=== PATIENT | female | born 1950 | race Caucasian/White ===

== ENCOUNTER 2018-06-04 21:33 | Inpatient (IN) | payer MEDICAID, OTHER ==
--- NOTE | 2018-06-04 22:05 | C.PDOC ---
History Of Present Illness 67 year old female, with PMHx of HTN and PSHx of right knee replacement 5 months ago, presents to ED with complaints of SOB just 30 minutes ago, associated with leg swelling and back pain. Patient states she visited the doctor one week ago and was told it was gas. Denies any fever, cough, fever, or vomiting. Patient returned from a trip to [facility] on 02/20/18. Time Seen by Provider: 06/04/18 21:37 Chief Complaint (Nursing): Shortness Of Breath History Per: Patient History/Exam Limitations: no limitations Onset/Duration Of Symptoms: Hrs Current Symptoms Are (Timing): Still Present Past Medical History Reviewed: Historical Data, Nursing Documentation, Vital Signs Vital Signs: Last Vital Signs Temp 98.6 F 06/04/18 21:38 Pulse 110 H 06/04/18 21:54 Resp 28 H 06/04/18 21:54 BP 147/78 06/04/18 21:54 Pulse Ox 100 06/04/18 21:54 - Medical History PMH: HTN Family History: States: No Known Family Hx - Social History Hx Tobacco Use: No Hx Alcohol Use: No Hx Substance Use: No - Immunization History Hx Tetanus Toxoid Vaccination: No Hx Influenza Vaccination: No Hx Pneumococcal Vaccination: No Review Of Systems Except As Marked, All Systems Reviewed And Found Negative. Constitutional: Negative for: Fever, Chills Respiratory: Positive for: Shortness of Breath Gastrointestinal: Negative for: Nausea, Vomiting, Diarrhea Musculoskeletal: Positive for: Back Pain, Other (Leg swelling) Physical Exam - Physical Exam Additional Physical Exam Comments: Constitutional: No acute distress. Head: Normocephalic. Atraumatic. Eyes: PERRL. ENT: Moist mucous membranes. Neck: Supple. Cardiovascular: Regular rate. Radial pulse 2+ bilaterally. Chest: Reproducible chest tenderness under left lower chest. Respiratory: Clear to auscultation bilaterally. GI: Soft. Nontender. Nondistended. Back: No CVA tenderness. Musculoskeletal: Bilateral leg edema R greater than L. Skin: No rash. Neurologic: Alert, no focal deficit. ED Course And Treatment - Laboratory Results Result Diagrams: 06/04/18 22:07 06/04/18 22:07 ECG Rhythm: Sinus Rhythm Interpretation Of ECG: No ST elevations Rate From EC O2 Sat by Pulse Oximetry: 100 (RA) Pulse Ox Interpretation: Normal Medical Decision Making Medical Decision Making: Impression: SOB Plan: --CT Abd/Pel --CT Chest --Labs --Urinalysis CT IMPRESSION: 1. No PE 2. Enteritis 3. Ascites 4. Mesenteric infiltration/omental caking 5. LLQ/L pelvis, 12 x 10 x 8 cm amorphous high density (40-50 HU) collection compatible with hemoperitoneum. Internal streaky hyperdensity present which may represent active hemorrhage. Possible recently ruptured mass. Surgery consulted. Dr. Gibson accepts patient to hospitalist service. At this time, patient in no distress, normal BP, HR normalized. Disposition - Disposition Disposition: HOSPITALIZED Disposition Time: 00:11 Condition: GUARDED Forms: [employer] (Senegalese) - Clinical Impression Clinical Impression: Hemoperitoneum, Ascites - Scribe Statement The provider has reviewed the documentation as recorded by the Michael Santiago Provider Attestation: All medical record entries made by the Michael were at my direction and personally dictated by me. I have reviewed the chart and agree that the record accurately reflects my personal performance of the history, physical exam, medical decision making, and the department course for this patient. I have also personally directed, reviewed, and agree with the discharge instructions and disposition.
[2018-06-04 22:11] LABS: BASO # 0.1 K/uL (0.0-0.2); BASO % 1.5 % (0.0-2.0); EOS # 0.2 K/uL (0.0-0.7); EOS % 1.9 % (0.0-4.0); HEMOGLOBIN 10.2 g/dL (11.0-16.0); LYMPH # 1.8 K/uL (1.0-4.3); LYMPH % 18.3 % (20.0-40.0); MEAN CELL VOLUME 80.7 fL (81.0-99.0); MEAN CORPUSCULAR HEMOGLOBIN 25.9 pg (27.0-31.0); MEAN CORPUSCULAR HGB CONC 32.1 g/dL (33.0-37.0); MEAN PLATELET VOLUME 8.6 fL (7.2-11.7); MONO # 0.8 K/uL (0.0-0.8); MONO % 7.9 % (0.0-10.0); NEUT # 6.9 K/uL (1.8-7.0); NEUT % 70.4 % (50.0-75.0); NRBC % 0.1 % (0.0-2.0); RBC 3.94 Mil/uL (3.80-5.20); WHITE BLOOD COUNT 9.8 K/uL (4.8-10.8)
[2018-06-04 22:23] LABS: ALB/GLOB RATIO 0.9 (1.0-2.1); ALBUMIN 3.9 g/dL (3.5-5.0); ALT/SGPT 18 U/L (9-52); AST/SGOT 38 U/L (14-36); BLOOD UREA NITROGEN 8 mg/dL (7-17); GFR NON-AFRICAN AMERICAN > 60; LIPASE 69 U/L (23-300)
[2018-06-04 22:27] LABS: INR 1.2; PARTIAL THROMBOPLASTIN TIME 27 SECONDS (21-34)
[2018-06-04 22:28] LABS: D DIMER > 5250 ng/mlDDU (0-243)
[2018-06-04 22:34] LABS: B-TYPE NATRIURETIC PEPTIDE 144 pg/mL (0-900); CK-MB 0.93 ng/mL (0.0-3.38)
[2018-06-04] MEDS ORDERED: Iodixanol 320 MG/ML 100 ML BOTTLE IV ONE (22:36)
[2018-06-04] MEDS ORDERED: Enoxaparin 80 mg Syringe SC STA (23:37)
--- NOTE | 2018-06-05 00:27 | CP.PCM.CON ---
Addendum entered and electronically signed by Umer Donahue DO 06/05/18 00:46: Given anemia with potential intra-abdominal bleeding would keep NPO and HOLD any anticoagulation/DVT prophylaxis. Would hold PO meds as well given evidence of gastric distension on CT Original Note: History of Present Illness - History of Present Illness History of Present Illness: Gen Sx Consult: Dr Milner Pt is a 67F with PMH of only HTN and R Knee replacement in [place] 5 months ago. Pt presents to ED for acute shortness of breathe. Worked up for PE but CT Chest negative. Incidentally found to have abdomen full of free fluid, concerning for ascites vs blood, as well as diffuse enteritis. There is questionable small contrast extravasation on CT scan. Pt is hemodynamically stable with no tachycardia. Pt reports she has been having generalized abdominal pain for 10 days. She has become progressively more distended during this time. She has had some nausea and decreased appetite, but denies emesis or fevers. Continues to have bowel movements but states they are been smaller than usual and she is left feeling as though she still has to defecate consistent with tenesmus. Denies any blood in the stool. Currently denies any abdominal pain, though she still feels bloated. Was reportedly recently seen as outpatient by GI team. Denies ever having had colonoscopy. Review of Systems - Review of Systems All systems: reviewed and no additional remarkable complaints except (as per hpi) Past Patient History - Infectious Disease Hx of Infectious Diseases: None - Past Social History Smoking Status: Never Smoked - CARDIAC Hx Hypertension: Yes - GASTROINTESTINAL Hx Gastroesophageal Reflux: Yes - PSYCHIATRIC Hx Substance Use: No - SURGICAL HISTORY Hx Surgeries: Yes Hx Joint Replacement: Yes (right knee) - ANESTHESIA Hx Anesthesia: Yes Hx Anesthesia Reactions: No Meds Allergies/Adverse Reactions: Allergies Allergy/AdvReac Type Severity Reaction Status Date / Time No Known Allergies Allergy Unverified 06/04/18 21:36 Physical Exam - Constitutional Appears: Non-toxic, No Acute Distress - Head Exam Head Exam: NORMOCEPHALIC - Eye Exam Eye Exam: Normal appearance. absent: Scleral icterus - ENT Exam ENT Exam: Normal Exam - Respiratory Exam Respiratory Exam: NORMAL BREATHING PATTERN. absent: Accessory Muscle Use, Decreased Breath Sounds, Respiratory Distress - Cardiovascular Exam Cardiovascular Exam: REGULAR RHYTHM. absent: Tachycardia - GI/Abdominal Exam GI & Abdominal Exam: Distended, Firm, Soft. absent: Guarding, Hernia, Mass, Organomegaly, Rebound, Rigid, Tenderness - Extremities Exam Extremities exam: Positive for: pedal edema - Neurological Exam Neurological exam: Alert, Oriented x3 - Psychiatric Exam Psychiatric exam: Normal Affect, Normal Mood - Skin Skin Exam: Normal Color, Warm Results - Vital Signs Recent Vital Signs: Last Vital Signs Temp 98.6 F 06/04/18 21:38 Pulse 97 H 06/04/18 23:33 Resp 28 H 06/04/18 23:33 BP 138/79 06/04/18 23:33 Pulse Ox 100 06/05/18 00:11 - Labs Result Diagrams: 06/04/18 22:07 06/04/18 22:07 Labs: Laboratory Results - last 24 hr 06/04/18 06/04/18 06/04/18 22:07 22:07 22:07 WBC 9.8 RBC 3.94 Hgb 10.2 L D Hct 31.7 L MCV 80.7 L D MCH 25.9 L MCHC 32.1 L RDW 15.0 H Plt Count 490 H D MPV 8.6 Neut % (Auto) 70.4 Lymph % (Auto) 18.3 L [place] % (Auto) 7.9 Eos % (Auto) 1.9 Baso % (Auto) 1.5 Neut # (Auto) 6.9 Lymph # (Auto) 1.8 [place] # (Auto) 0.8 Eos # (Auto) 0.2 Baso # (Auto) 0.1 PT 13.0 H INR 1.2 APTT 27 D-Dimer, Quantitative > 5250 H Sodium 137 Potassium 3.9 Chloride 101 Carbon Dioxide 23 Anion Gap 17 BUN 8 Creatinine 0.8 Est GFR ( Amer) > 60 Est GFR (Non-Af Amer) > 60 Random Glucose 154 H Calcium 9.0 Total Bilirubin 0.7 AST 38 H ALT 18 Alkaline Phosphatase 101 Total Creatine Kinase 58 CK-MB (Mass) 0.93 Troponin I < 0.0120 NT-Pro-B Natriuret Pep 144 Total Protein 8.1 Albumin 3.9 Globulin 4.2 H Albumin/Globulin Ratio 0.9 L Lipase 69 Assessment & Plan - Assessment and Plan (Free Text) Assessment: 67F with free-abdominal fluid; ascites vs intra-peritoneal hemorrhage (likely ovarian but cannot r/o GI source) Plan: admit to hospital Q6H HgB checks for first 12 hours minimum Frequent vitals and serial abdominal exams NPO IVF Recommend GI consult w/ Dr Sanchez who has seen pt previously Recommend consult IR for possible paracentesis/drainage of fluid (both therapeutic and diagnostic) as well as potentially embolization if an actual bleed is identified Given pt stability, there is no indicate for acute surgical intervention, and other less invasive modalities can be pursued for both therapy and diagnosis. Can consider bleeding scan if an melena/hematochezia or sudden drop in HgB Would have low threshhold for ICU admission if any signs of hemodynamic instability will d/w Dr Alf Donahue, PGY4
[2018-06-05] MEDS ORDERED: Sodium Chloride 0.9% 1,000 ML ONE (01:18)
[2018-06-05] MEDS: Sodium Chloride 0.9% 1,000 ML IV SCH ×2 (01:20→17:05)
--- NOTE | 2018-06-05 01:21 | CP.PCM.HP ---
<VickiLeatha - Last Filed: 06/05/18 01:21> History of Present Illness - History of Present Illness History of Present Illness: Phyllisyumiko Vicki PGY1 H&P for Dr. Gibson Pt is a 67 F with PMH HTN who presents with shortness of breath x1 day. She also reports increased abdominal distention for the past week. She tried taking antacid at home with no relief. She reports coming back from a 5 month stay in [place] in February. She also reports increased swelling in the R leg. She reports s ome nausea, but denies vomiting. She denies chest pain, dizziness, headache, diarrhea, dysuria. In the ED, D-dimer was elevated at 5250. CT chest was negative. CT abdomen showed an abdominal density ascites vs. Hemoperitoneum. SxH: R knee replacement FamH: mom HTN, DM, dad HTN, DM SocH: denies tobacco, etoh, recreational drug use Meds: metoprolol succinate 25, losartan 25 Allergies: NKDA PMD: Mirian Present on Admission - Present on Admission Any Indicators Present on Admission: No Review of Systems - Review of Systems Review of Systems: as per HPI Past Patient History - Infectious Disease Hx of Infectious Diseases: None - Past Social History Smoking Status: Never Smoked - CARDIAC Hx Hypertension: Yes - GASTROINTESTINAL Hx Gastroesophageal Reflux: Yes - PSYCHIATRIC Hx Substance Use: No - SURGICAL HISTORY Hx Surgeries: Yes Hx Joint Replacement: Yes (right knee) - ANESTHESIA Hx Anesthesia: Yes Hx Anesthesia Reactions: No Meds Allergies/Adverse Reactions: Allergies Allergy/AdvReac Type Severity Reaction Status Date / Time No Known Allergies Allergy Unverified 06/04/18 21:36 Physical Exam - Constitutional Appears: Well, No Acute Distress - Head Exam Head Exam: ATRAUMATIC, NORMOCEPHALIC - Eye Exam Eye Exam: EOMI, Normal appearance, PERRL Pupil Exam: NORMAL ACCOMODATION - ENT Exam ENT Exam: Mucous Membranes Moist, Normal Exam - Neck Exam Neck exam: Positive for: Normal Inspection - Respiratory Exam Respiratory Exam: Clear to Auscultation Bilateral, NORMAL BREATHING PATTERN. absent: Rales, Rhonchi, Wheezes, Respiratory Distress, Stridor - Cardiovascular Exam Cardiovascular Exam: REGULAR RHYTHM, RRR, +S1, +S2. absent: Gallop, Rubs, Systolic Murmur - GI/Abdominal Exam GI & Abdominal Exam: Distended, Firm, Normal Bowel Sounds. absent: Rigid, Tenderness - Extremities Exam Extremities exam: Positive for: pedal edema. Negative for: tenderness - Neurological Exam Neurological exam: Alert, Oriented x3 - Psychiatric Exam Psychiatric exam: Normal Affect, Normal Mood Results - Vital Signs Recent Vital Signs: Last Vital Signs Temp 98.6 F 06/04/18 21:38 Pulse 97 H 06/04/18 23:33 Resp 28 H 06/04/18 23:33 BP 138/79 06/04/18 23:33 Pulse Ox 100 06/05/18 00:11 - Labs Result Diagrams: 06/04/18 22:07 06/04/18 22:07 Labs: Laboratory Results - last 24 hr 06/04/18 06/04/18 06/04/18 22:07 22:07 22:07 WBC 9.8 RBC 3.94 Hgb 10.2 L D Hct 31.7 L MCV 80.7 L D MCH 25.9 L MCHC 32.1 L RDW 15.0 H Plt Count 490 H D MPV 8.6 Neut % (Auto) 70.4 Lymph % (Auto) 18.3 L [place] % (Auto) 7.9 Eos % (Auto) 1.9 Baso % (Auto) 1.5 Neut # (Auto) 6.9 Lymph # (Auto) 1.8 [place] # (Auto) 0.8 Eos # (Auto) 0.2 Baso # (Auto) 0.1 PT 13.0 H INR 1.2 APTT 27 D-Dimer, Quantitative > 5250 H Sodium 137 Potassium 3.9 Chloride 101 Carbon Dioxide 23 Anion Gap 17 BUN 8 Creatinine 0.8 Est GFR ( Amer) > 60 Est GFR (Non-Af Amer) > 60 Random Glucose 154 H Calcium 9.0 Total Bilirubin 0.7 AST 38 H ALT 18 Alkaline Phosphatase 101 Total Creatine Kinase 58 CK-MB (Mass) 0.93 Troponin I < 0.0120 NT-Pro-B Natriuret Pep 144 Total Protein 8.1 Albumin 3.9 Globulin 4.2 H Albumin/Globulin Ratio 0.9 L Lipase 69 Blood Type Antibody Screen Crossmatch 06/05/18 00:00 WBC RBC Hgb Hct MCV MCH MCHC RDW Plt Count MPV Neut % (Auto) Lymph % (Auto) [place] % (Auto) Eos % (Auto) Baso % (Auto) Neut # (Auto) Lymph # (Auto) [place] # (Auto) Eos # (Auto) Baso # (Auto) PT INR APTT D-Dimer, Quantitative Sodium Potassium Chloride Carbon Dioxide Anion Gap BUN Creatinine Est GFR ( Amer) Est GFR (Non-Af Amer) Random Glucose Calcium Total Bilirubin AST ALT Alkaline Phosphatase Total Creatine Kinase CK-MB (Mass) Troponin I NT-Pro-B Natriuret Pep Total Protein Albumin Globulin Albumin/Globulin Ratio Lipase Blood Type AB POSITIVE Antibody Screen Negative Crossmatch See Detail Assessment & Plan - Assessment and Plan (Free Text) Assessment: Pt is a 67 F with PMH HTN who presents with shortness of breath and abdominal distention admitted for further treatment of abdominal ascites vs. hemoperitoneum Plan: Ascites vs. Hemoperitoneum - pt with shortness of breath and abdominal distention - CT abdomen: abdominal density ascites vs. hemoperitoneum in LLQ, possibly ruptured mass - CT chest: negative - D-dimer 5250 - H&H q6h - I/Os - serial abdominal exams as per Sx - Gen Sx consulted, Dr. Milner - recommends consulting GI and IR - IR consulted, Dr. Valentin - f/u recs - GI consulted, Dr. Singh - f/u recs HTN - continue home losartan 25 PO daily - continue home metoprolol succinate 25 PO daily PPx: Protonix 40 daily Lovenox 40 SC daily HHD Case reviewed and plan discussed with Dr. Gibson <Alexey Gibson - Last Filed: 06/05/18 06:33> Results - Vital Signs Recent Vital Signs: Last Vital Signs Temp 97.9 F 06/05/18 05:26 Pulse 81 06/05/18 05:26 Resp 24 06/05/18 05:26 BP 125/76 06/05/18 05:26 Pulse Ox 100 06/05/18 05:26 - Labs Result Diagrams: 06/05/18 05:26 06/04/18 22:07 Labs: Laboratory Results - last 24 hr 06/04/18 06/04/18 06/04/18 22:07 22:07 22:07 WBC 9.8 RBC 3.94 Hgb 10.2 L D Hct 31.7 L MCV 80.7 L D MCH 25.9 L MCHC 32.1 L RDW 15.0 H Plt Count 490 H D MPV 8.6 Neut % (Auto) 70.4 Lymph % (Auto) 18.3 L [place] % (Auto) 7.9 Eos % (Auto) 1.9 Baso % (Auto) 1.5 Neut # (Auto) 6.9 Lymph # (Auto) 1.8 [place] # (Auto) 0.8 Eos # (Auto) 0.2 Baso # (Auto) 0.1 PT 13.0 H INR 1.2 APTT 27 D-Dimer, Quantitative > 5250 H Sodium 137 Potassium 3.9 Chloride 101 Carbon Dioxide 23 Anion Gap 17 BUN 8 Creatinine 0.8 Est GFR ( Amer) > 60 Est GFR (Non-Af Amer) > 60 Random Glucose 154 H Calcium 9.0 Total Bilirubin 0.7 AST 38 H ALT 18 Alkaline Phosphatase 101 Total Creatine Kinase 58 CK-MB (Mass) 0.93 Troponin I < 0.0120 NT-Pro-B Natriuret Pep 144 Total Protein 8.1 Albumin 3.9 Globulin 4.2 H Albumin/Globulin Ratio 0.9 L Lipase 69 Urine Color Urine Clarity Urine pH Ur Specific [place] Urine Protein Urine Glucose (UA) Urine Ketones Urine Blood Urine Nitrate Urine Bilirubin Urine Urobilinogen Ur Leukocyte Esterase Urine WBC (Auto) Urine RBC (Auto) Ur Squamous Epith Cells Blood Type Antibody Screen Crossmatch 06/05/18 06/05/18 06/05/18 00:00 01:25 05:26 WBC RBC Hgb 8.5 L Hct 26.4 L MCV MCH MCHC RDW Plt Count MPV Neut % (Auto) Lymph % (Auto) [place] % (Auto) Eos % (Auto) Baso % (Auto) Neut # (Auto) Lymph # (Auto) [place] # (Auto) Eos # (Auto) Baso # (Auto) PT INR APTT D-Dimer, Quantitative Sodium Potassium Chloride Carbon Dioxide Anion Gap BUN Creatinine Est GFR ( Amer) Est GFR (Non-Af Amer) Random Glucose Calcium Total Bilirubin AST ALT Alkaline Phosphatase Total Creatine Kinase CK-MB (Mass) Troponin I NT-Pro-B Natriuret Pep Total Protein Albumin Globulin Albumin/Globulin Ratio Lipase Urine Color Yellow Urine Clarity Clear Urine pH 5.0 Ur Specific [place] 1.048 H Urine Protein Negative Urine Glucose (UA) Normal Urine Ketones Negative Urine Blood Negative Urine Nitrate Negative Urine Bilirubin Negative Urine Urobilinogen Normal Ur Leukocyte Esterase Neg Urine WBC (Auto) < 1 Urine RBC (Auto) < 1 Ur Squamous Epith Cells 4 Blood Type AB POSITIVE Antibody Screen Negative Crossmatch See Detail Assessment & Plan - Date & Time Date: 06/05/18 (I have seen and examined the patient. I agree with the findings and plan of care as documented by Dr. Cohen. Patient with complaints of Shortness of breath. CT showing ascites. Concern for hemoperitoneum secondary to bleed from a mass. Consult to surgery, GI, and IR. Monitor CBC. Transfuse as necessary. History of hypertension. Continue home meds. Stop meds if blood drops. Monitor for acute changes.) Time: 06:31 Attending/Attestation - Attestation I have personally seen and examined this patient.: Yes I have fully participated in the care of the patient.: Yes I have reviewed all pertinent clinical information: Yes
[2018-06-05 01:28] LABS: SQUAMOUS EPITHIAL 4 /hpf (0-5); URINE BILIRUBIN NEGATIVE (NEGATIVE); URINE BLOOD NEGATIVE (NEGATIVE); URINE CLARITY Clear (Clear); URINE COLOR Yellow (YELLOW); URINE GLUCOSE (UA) NORMAL (Normal); URINE LEUKOCYTE ESTERASE NEG Leu/uL (Negative); URINE PROTEIN NEGATIVE (NEGATIVE); URINE UROBILINOGEN NORMAL mg/dL (0.2-1.0)
[2018-06-05 05:30] LABS: HEMOGLOBIN 8.5 g/dL (11.0-16.0)
[2018-06-05] MEDS ORDERED: Enoxaparin 40 mg Syringe SC SCH (10:00)
[2018-06-05] MEDS ORDERED: Pantoprazole 40 mg EC Tab PO SCH (10:00)
[2018-06-05 10:13] LABS: BASO # 0.1 K/uL (0.0-0.2); BASO % 1.2 % (0.0-2.0); EOS # 0.2 K/uL (0.0-0.7); HEMOGLOBIN 8.5 g/dL (11.0-16.0); LYMPH # 1.1 K/uL (1.0-4.3); LYMPH % 14.7 % (20.0-40.0); MEAN CELL VOLUME 79.7 fL (81.0-99.0); MEAN CORPUSCULAR HEMOGLOBIN 26.8 pg (27.0-31.0); MEAN CORPUSCULAR HGB CONC 33.6 g/dL (33.0-37.0); MEAN PLATELET VOLUME 8.1 fL (7.2-11.7); MONO # 0.7 K/uL (0.0-0.8); MONO % 9.1 % (0.0-10.0); NEUT # 5.7 K/uL (1.8-7.0); NRBC % 0.1 % (0.0-2.0); RBC 3.17 Mil/uL (3.80-5.20); RED CELL DISTRIBUTION WIDTH 15.2 % (11.5-14.5); WHITE BLOOD COUNT 7.8 K/uL (4.8-10.8)
[2018-06-05] MEDS: Metoprolol Succinate 25 mg XL Tab PO SCH (10:29)
--- NOTE | 2018-06-05 10:56 | CP.PCM.CON ---
History of Present Illness - History of Present Illness History of Present Illness: CCU Consult Note HPI: 67 yo F with PMH of HTN presents with 10 days of progressive abdominal distention and a constant dull epigastric pain and pain in the left chest wall. Pt has had a decreased appetite recently. She also complains of intermittent swelling in the legs bilaterally for the past 20 days. Pt was recently in [place] 6 months ago for a knee surgery. Pt denies any history of liver disease. Pt ca nnot recall her home meds. ROS: pos + nausea, decreased appetite, sob neg - chest pain, vomitting, diarrhea, radiating pains, fever chills SxH: R knee replacement FamH: mom HTN, DM, dad HTN, DM SocH: denies tobacco, etoh, recreational drug use Meds: metoprolol succinate 25, losartan 25 Allergies: NKDA PMD: Mirian Review of Systems - Review of Systems All systems: reviewed and no additional remarkable complaints except (as per HPI) Past Patient History - Infectious Disease Hx of Infectious Diseases: None - Past Social History Smoking Status: Never Smoked - CARDIAC Hx Hypertension: Yes - GASTROINTESTINAL Hx Gastroesophageal Reflux: Yes - PSYCHIATRIC Hx Substance Use: No - SURGICAL HISTORY Hx Surgeries: Yes Hx Joint Replacement: Yes (right knee) - ANESTHESIA Hx Anesthesia: Yes Hx Anesthesia Reactions: No Meds Allergies/Adverse Reactions: Allergies Allergy/AdvReac Type Severity Reaction Status Date / Time No Known Allergies Allergy Unverified 06/04/18 21:36 - Medications Medications: Current Medications Sodium Chloride (Sodium Chloride 0.9%) 1,000 mls @ 100 mls/hr IV .Q10H [facility] Last Admin: 06/05/18 01:20 Dose: 100 mls/hr Losartan Potassium (Cozaar) 25 mg PO DAILY [facility] Last Admin: 06/05/18 10:28 Dose: 25 mg Metoprolol Succinate (Toprol Xl) 25 mg PO DAILY [facility] Last Admin: 06/05/18 10:29 Dose: 25 mg Ondansetron HCl (Zofran Inj) 4 mg IVP Q6 PRN PRN Reason: Nausea/Vomiting Pantoprazole Sodium (Protonix Inj) 40 mg IVP DAILY [facility] Last Admin: 06/05/18 10:28 Dose: 40 mg Physical Exam - Constitutional Appears: Well, Non-toxic, No Acute Distress - Head Exam Head Exam: ATRAUMATIC, NORMOCEPHALIC - Eye Exam Eye Exam: EOMI, Normal appearance. absent: Scleral icterus - Neck Exam Neck exam: Positive for: Normal Inspection - Respiratory Exam Respiratory Exam: Clear to Auscultation Bilateral. absent: Respiratory Distress - Cardiovascular Exam Cardiovascular Exam: RRR, +S1, +S2 - GI/Abdominal Exam GI & Abdominal Exam: Distended. absent: Guarding, Rigid, Tenderness Additional comments: caput medusae - Extremities Exam Extremities exam: Positive for: pedal edema, pedal pulses present Additional comments: +1 - Neurological Exam Neurological exam: Alert, CN II-XII Intact, Oriented x3 - Psychiatric Exam Psychiatric exam: Normal Affect, Normal Mood - Skin Skin Exam: Dry, Normal Color, Warm Results - Vital Signs Recent Vital Signs: Last Vital Signs Temp 97.9 F 06/05/18 05:26 Pulse 79 06/05/18 10:10 Resp 21 06/05/18 10:10 BP 129/76 06/05/18 10:10 Pulse Ox 100 06/05/18 10:10 - Labs Result Diagrams: 06/05/18 10:10 06/04/18 22:07 Labs: Laboratory Results - last 24 hr 06/04/18 06/04/18 06/04/18 22:07 22:07 22:07 WBC 9.8 RBC 3.94 Hgb 10.2 L D Hct 31.7 L MCV 80.7 L D MCH 25.9 L MCHC 32.1 L RDW 15.0 H Plt Count 490 H D MPV 8.6 Neut % (Auto) 70.4 Lymph % (Auto) 18.[address] [place] % (Auto) 7.9 Eos % (Auto) 1.9 Baso % (Auto) 1.5 Neut # (Auto) 6.9 Lymph # (Auto) 1.8 [place] # (Auto) 0.8 Eos # (Auto) 0.2 Baso # (Auto) 0.1 PT 13.0 H INR 1.2 APTT 27 D-Dimer, Quantitative > 5250 H Sodium 137 Potassium 3.9 Chloride 101 Carbon Dioxide 23 Anion Gap 17 BUN 8 Creatinine 0.8 Est GFR ( Amer) > 60 Est GFR (Non-Af Amer) > 60 Random Glucose 154 H Calcium 9.0 Total Bilirubin 0.7 AST 38 H ALT 18 Alkaline Phosphatase 101 Total Creatine Kinase 58 CK-MB (Mass) 0.93 Troponin I < 0.0120 NT-Pro-B Natriuret Pep 144 Total Protein 8.1 Albumin 3.9 Globulin 4.2 H Albumin/Globulin Ratio 0.9 L Lipase 69 Urine Color Urine Clarity Urine pH Ur Specific [place] Urine Protein Urine Glucose (UA) Urine Ketones Urine Blood Urine Nitrate Urine Bilirubin Urine Urobilinogen Ur Leukocyte Esterase Urine WBC (Auto) Urine RBC (Auto) Ur Squamous Epith Cells Stool Occult Blood Blood Type Antibody Screen Crossmatch 06/05/18 06/05/18 06/05/18 00:00 01:25 05:26 WBC RBC Hgb 8.5 L Hct 26.4 L MCV MCH MCHC RDW Plt Count MPV Neut % (Auto) Lymph % (Auto) [place] % (Auto) Eos % (Auto) Baso % (Auto) Neut # (Auto) Lymph # (Auto) [place] # (Auto) Eos # (Auto) Baso # (Auto) PT INR APTT D-Dimer, Quantitative Sodium Potassium Chloride Carbon Dioxide Anion Gap BUN Creatinine Est GFR ( Amer) Est GFR (Non-Af Amer) Random Glucose Calcium Total Bilirubin AST ALT Alkaline Phosphatase Total Creatine Kinase CK-MB (Mass) Troponin I NT-Pro-B Natriuret Pep Total Protein Albumin Globulin Albumin/Globulin Ratio Lipase Urine Color Yellow Urine Clarity Clear Urine pH 5.0 Ur Specific [place] 1.048 H Urine Protein Negative Urine Glucose (UA) Normal Urine Ketones Negative Urine Blood Negative Urine Nitrate Negative Urine Bilirubin Negative Urine Urobilinogen Normal Ur Leukocyte Esterase Neg Urine WBC (Auto) < 1 Urine RBC (Auto) < 1 Ur Squamous Epith Cells 4 Stool Occult Blood Blood Type AB POSITIVE Antibody Screen Negative Crossmatch See Detail 06/05/18 06/05/18 07:05 10:10 WBC 7.8 RBC 3.17 L Hgb 8.5 L Hct 25.3 L MCV 79.7 L MCH 26.8 L MCHC 33.6 RDW 15.2 H Plt Count 364 D MPV 8.1 Neut % (Auto) 73.0 Lymph % (Auto) 14.[address] % (Auto) 9.1 Eos % (Auto) 2.0 Baso % (Auto) 1.2 Neut # (Auto) 5.7 Lymph # (Auto) 1.1 [place] # (Auto) 0.7 Eos # (Auto) 0.2 Baso # (Auto) 0.1 PT INR APTT D-Dimer, Quantitative Sodium Potassium Chloride Carbon Dioxide Anion Gap BUN Creatinine Est GFR ( Amer) Est GFR (Non-Af Amer) Random Glucose Calcium Total Bilirubin AST ALT Alkaline Phosphatase Total Creatine Kinase CK-MB (Mass) Troponin I NT-Pro-B Natriuret Pep Total Protein Albumin Globulin Albumin/Globulin Ratio Lipase Urine Color Urine Clarity Urine pH Ur Specific [place] Urine Protein Urine Glucose (UA) Urine Ketones Urine Blood Urine Nitrate Urine Bilirubin Urine Urobilinogen Ur Leukocyte Esterase Urine WBC (Auto) Urine RBC (Auto) Ur Squamous Epith Cells Stool Occult Blood Negative Blood Type Antibody Screen Crossmatch Assessment & Plan - Assessment and Plan (Free Text) Assessment: 67 yo F admitted for abd distention
--- NOTE | 2018-06-05 11:44 | CP.PCM.PN ---
<Susan Lerma - Last Filed: 06/05/18 17:47> Subjective - Date & Time of Evaluation Date of Evaluation: 06/05/18 Time of Evaluation: 07:00 - Subjective Subjective: Pt examined at bedside with daughter in room. Pt reports feeling better this morning and that her abdomen feels less distended. She denies chest pain, nausea, vomiting, Objective - Vital Signs/Intake and Output Vital Signs (last 24 hours): Temp Pulse Resp BP Pulse Ox 97.9 F 79 21 129/76 100 06/05/18 05:26 06/05/18 10:10 06/05/18 10:10 06/05/18 10:10 06/05/18 10:10 Intake and Output: 06/05/18 06/05/18 06:59 18:59 Output Total 300 Balance -300 - Medications Medications: Current Medications Sodium Chloride (Sodium Chloride 0.9%) 1,000 mls @ 100 mls/hr IV .Q10H [facility] Last Admin: 06/05/18 01:20 Dose: 100 mls/hr Losartan Potassium (Cozaar) 25 mg PO DAILY [facility] Last Admin: 06/05/18 10:28 Dose: 25 mg Metoprolol Succinate (Toprol Xl) 25 mg PO DAILY [facility] Last Admin: 06/05/18 10:29 Dose: 25 mg Ondansetron HCl (Zofran Inj) 4 mg IVP Q6 PRN PRN Reason: Nausea/Vomiting Pantoprazole Sodium (Protonix Inj) 40 mg IVP DAILY [facility] Last Admin: 06/05/18 10:28 Dose: 40 mg - Labs Labs: 06/05/18 10:10 06/04/18 22:07 PT 13.0 SECONDS (9.7-12.2) H 06/04/18 22:07 INR 1.2 06/04/18 22:07 APTT 27 SECONDS (21-34) 06/04/18 22:07 - Constitutional Appears: No Acute Distress - Head Exam Head Exam: ATRAUMATIC, NORMAL INSPECTION, NORMOCEPHALIC - Eye Exam Eye Exam: EOMI, Normal appearance - ENT Exam ENT Exam: Mucous Membranes Moist, Normal Exam - Neck Exam Neck Exam: Normal Inspection - Respiratory Exam Respiratory Exam: Clear to Ausculation Bilateral, NORMAL BREATHING PATTERN - Cardiovascular Exam Cardiovascular Exam: REGULAR RHYTHM, +S1, +S2. absent: Tachycardia - GI/Abdominal Exam GI & Abdominal Exam: Distended, Soft Additional comments: distended, no fluid wave. non-tender to palpation - Extremities Exam Extremities Exam: Pedal Edema (2+ edema B/L). absent: Calf Tenderness - Neurological Exam Neurological Exam: Alert, Awake, Oriented x3 - Psychiatric Exam Psychiatric exam: Normal Affect, Normal Mood - Skin Skin Exam: Dry, Intact, Normal Color, Warm Assessment and Plan - Assessment and Plan (Free Text) Assessment: 67 year old female admitted w/ ovarian neoplasm with peritoneal carcinomatosis Ovarian cancer -CT abd/pelvis: left/midline abdominal mass and omental caking consistent w/ findings of ovarian malignancy with peritoneal carcinomatosis -symptomatic management -CA-125: 666 -miralax -lasix -morphine 1mg q6 prn -plan for d/c tmrw, pt advised to follow up w/ telephone order supervisor onc at [facility]. -consult Dr. Rodriguez, telephone order supervisor -sx consult, Dr. Milner -IR consult, Dr. Valentin HTN -cozaar 25mg -metoprolol 25mg Dispo: symptomatic management overnight. Discussed with daughter and pt that tomorrow they should get their medical records to take to [facility] or [place] for further evaluation and treatment. <Bereket Casillas - Last Filed: 06/15/18 17:48> Objective - Vital Signs/Intake and Output Vital Signs (last 24 hours): Temp Pulse Resp BP Pulse Ox 97.8 F 78 20 104/61 96 06/06/18 04:00 06/06/18 08:00 06/06/18 04:00 06/06/18 11:06 06/06/18 04:00 - Labs Labs: 06/06/18 07:07 06/06/18 07:07 PT 13.0 SECONDS (9.7-12.2) H 06/04/18 22:07 INR 1.2 06/04/18 22:07 APTT 27 SECONDS (21-34) 06/04/18 22:07 Attending/Attestation - Attestation I have personally seen and examined this patient.: Yes I have fully participated in the care of the patient.: Yes I have reviewed all pertinent clinical information, including history, physical exam and plan: Yes Notes (Text): 67 year old female admitted w/ ovarian neoplasm with peritoneal carcinomatosis Ovarian cancer -CT abd/pelvis: left/midline abdominal mass and omental caking consistent w/ findings of ovarian malignancy with peritoneal carcinomatosis -symptomatic management
--- NOTE | 2018-06-05 12:06 | CT ---
Date of service: 06/04/2018 CTA chest PE protocol Indication: Chest pain, dyspnea, leg swelling Technique: Contiguous axial images were obtained through the chest with intravenous contrast enhancement. Sagittal and coronal reconstructions were generated and reviewed. This CT exam was performed using 1 or more of the following dose reduction techniques: Automated exposure control, adjustment of the MAA and/or kV according to patient size, and/or use of iterative reconstruction technique. IV contrast: 100 mL Visipaque IV Radiation dose (DLP): 356.04 MGy-cm. Comparison: None available Findings: Visualized portions of the inferior thyroid gland appear unremarkable. The mediastinal and hilar vascular structures appear grossly unremarkable; somewhat obscured by streak artifact. Mild cardiomegaly. Coronary artery calcifications. There is suboptimal opacification of the pulmonary arteries limiting evaluation for pulmonary embolus. Given this limitation, there are no visible intraluminal filling defects within the central pulmonary arteries to suggest central pulmonary embolism. Bibasilar atelectasis. No pleural effusion. No pneumothorax. No suspicious pulmonary nodules measuring greater than 5 mm. Small hiatal hernia with evidence gastroesophageal reflux. Limited visualized portions of the upper abdomen: Ascites. Degenerative changes. Impression: There is suboptimal opacification of the pulmonary arteries limiting evaluation for pulmonary embolus. Given this limitation, there are no visible intraluminal filling defects within the central pulmonary arteries to suggest central pulmonary embolism. Upper abdominal ascites. Additional findings as above. Preliminary impression was provided by [email or web address].
--- NOTE | 2018-06-05 12:32 | CT ---
Date of service: 06/04/2018 PROCEDURE: CT Abdomen and Pelvis with and without intravenous contrast HISTORY: abdominal pain and distention COMPARISON: None. TECHNIQUE: Axial images of the abdomen were obtained in the pre contrast, portal venous and delayed phases of enhancement. Coronal and sagittal reformats were generated. Contrast dose: Radiation dose: Total exam DLP = mGy-cm. This CT exam was performed using one or more of the following dose reduction techniques: Automated exposure control, adjustment of the mA and/or kV according to patient size, and/or use of iterative reconstruction technique. FINDINGS: LOWER THORAX: Unremarkable. LIVER: Unremarkable. No gross lesion or ductal dilatation. GALLBLADDER AND BILE DUCTS: Unremarkable. PANCREAS: Unremarkable. No gross lesion or ductal dilatation. SPLEEN: Unremarkable. ADRENALS: Unremarkable. No mass. KIDNEYS AND URETERS: Unremarkable. No hydronephrosis. No solid mass. VASCULATURE: Unremarkable. No aortic aneurysm. BOWEL: Unremarkable. No obstruction. No gross mural thickening. APPENDIX: Normal appendix. PERITONEUM: Extensive abdominal pelvic ascites with omental caking and increased soft tissue density in the left hemipelvis and left mid abdomen within the peritoneal cavity which could represent tumor measuring roughly 12 x 10 x 8 cm (less likely hemorrhage. Prominent right ovary. Left ovary not identified. Findings most likely represent ovarian malignancy with peritoneal carcinomatosis. LYMPH NODES: Unremarkable. No enlarged lymph nodes.) BLADDER: Unremarkable. REPRODUCTIVE: Unremarkable. BONES: No acute fracture. OTHER FINDINGS: None. IMPRESSION: Extensive abdominal pelvic ascites with omental caking and increased soft tissue density in the left hemipelvis and left mid abdomen within the peritoneal cavity which could represent tumor measuring roughly 12 x 10 x 8 cm (less likely hemorrhage. Prominent right ovary. Left ovary not identified. Findings most likely represent ovarian malignancy with peritoneal carcinomatosis.
[2018-06-05] MEDS ORDERED: POLYETHYLENE GLYCOL 3350 17 GM/Dose PACKET PO ONE (14:30)
[2018-06-05] MEDS ORDERED: Simethicone 80 mg Chewtab PO ONE (14:30)
--- NOTE | 2018-06-05 16:09 | CP.PCM.CON ---
<Carey Mcdermott - Last Filed: 06/05/18 17:14> History of Present Illness - History of Present Illness History of Present Illness: BACK DIGGER OPERATOR consult note CC " abdominal distention" HPI: Patient is a 67 year old female with history of HTN who presents for 15 day history of abdominal distention, nausea, decreased appetite, shortness of breath, back pain and leg swelling. She tried antacids without relief of her abdominal distention. She had a recent right knee surgery in [place] and returned at the beginning of February. CT of abdomen/pelvis revealed extensive abdominal pelvic ascites with omental caking and increased soft tissue density in the left hemipelvis and left mid abdomen within the peritoneal cavity which could represent tumor measuring roughly 12 x 10 x 8cm, less likely hemorrhage. Prominent right ovary. Left ovary not identified. Findings most likely consistent represent ovarian malignancy with peritoneal carcinomatosis. BACK DIGGER OPERATOR consulted for possible ovarian malignancy seen on CT. Daughter present at bedside who states she has not had any vaginal bleeding or had any abdominal or pelvic pain. Daughter states she went through menopause at age 51, and has not had any postmenopausal bleeding. OBhx: BACK DIGGER OPERATOR hx: Menarche at age 15, periods every month until age 51 when she went through menopause. Has never had Pap smear as per daughter. Last mammogram negative 2-3 years ago. PMH: HTN PSH: Right knee surgery (in [place] 5 months ago) Home Meds: Losartan 25mg daily, Metoprolol 25mg PO daily Social hx: no history of tobacco, alcohol or illicit drug use. Occupation: Homemaker Allergies: NKDA Family hx: Mother - HTN, DM. Father - HTN, DM Review of Systems - Constitutional Constitutional: absent: Chills, Fever - Cardiovascular Cardiovascular: Dyspnea. absent: Chest Pain - Gastrointestinal Gastrointestinal: Bloating, Nausea. absent: Abdominal Pain - Genitourinary Genitourinary: absent: Dysuria - Reproductive: Female Reproductive:Female: Post Menopausal. absent: Pelvic Pain - Menstruation Menstruation: Post Menopausal - Musculoskeletal Musculoskeletal: Back Pain Past Patient History - Infectious Disease Hx of Infectious Diseases: None - Past Social History Smoking Status: Never Smoked - CARDIAC Hx Hypertension: Yes - GASTROINTESTINAL Hx Gastroesophageal Reflux: Yes - PSYCHIATRIC Hx Substance Use: No - SURGICAL HISTORY Hx Surgeries: Yes Hx Joint Replacement: Yes (right knee) - ANESTHESIA Hx Anesthesia: Yes Hx Anesthesia Reactions: No Meds Allergies/Adverse Reactions: Allergies Allergy/AdvReac Type Severity Reaction Status Date / Time No Known Allergies Allergy Unverified 06/04/18 21:36 - Medications Medications: Current Medications Sodium Chloride (Sodium Chloride 0.9%) 1,000 mls @ 100 mls/hr IV .Q10H [facility] Last Admin: 06/05/18 01:20 Dose: 100 mls/hr Losartan Potassium (Cozaar) 25 mg PO DAILY [facility] Last Admin: 06/05/18 10:28 Dose: 25 mg Metoprolol Succinate (Toprol Xl) 25 mg PO DAILY [facility] Last Admin: 06/05/18 10:29 Dose: 25 mg Morphine Sulfate (Morphine) 1 mg IV Q6 PRN PRN Reason: Pain, severe (8-10) Ondansetron HCl (Zofran Inj) 4 mg IVP Q6 PRN PRN Reason: Nausea/Vomiting Pantoprazole Sodium (Protonix Inj) 40 mg IVP DAILY [facility] Last Admin: 06/05/18 10:28 Dose: 40 mg Physical Exam - Constitutional Appears: No Acute Distress - Head Exam Head Exam: ATRAUMATIC - Eye Exam Eye Exam: EOMI, PERRL. absent: Scleral icterus - ENT Exam ENT Exam: Mucous Membranes Moist - Respiratory Exam Respiratory Exam: Clear to Auscultation Bilateral. absent: Rales, Rhonchi, W heezes - Cardiovascular Exam Cardiovascular Exam: REGULAR RHYTHM, +S1, +S2 - GI/Abdominal Exam GI & Abdominal Exam: Distended, Firm, Normal Bowel Sounds, Soft. absent: Guarding, Tenderness - Exam Bimanual exam: absent: Cervical Motion Tendernes, Uterine Enlargement, Uterine Tenderness Additional comments: adnexal mass not palpated secondary to uterine size and patient's body habitus - Extremities Exam Extremities exam: Negative for: calf tenderness Additional comments: right calf swelling>left calf swelling (+) vertical scar over right knee from surgery 5 months ago in [place] - Neurological Exam Neurological exam: Alert, Oriented x3 Results - Vital Signs Recent Vital Signs: Last Vital Signs Temp 97.9 F 06/05/18 05:26 Pulse 73 06/05/18 15:35 Resp 20 06/05/18 15:35 BP 158/80 H 06/05/18 15:35 Pulse Ox 100 06/05/18 15:35 - Labs Result Diagrams: 06/05/18 16:20 06/04/18 22:07 Labs: Laboratory Results - last 24 hr 06/04/18 06/04/18 06/04/18 22:07 22:07 22:07 WBC 9.8 RBC 3.94 Hgb 10.2 L D Hct 31.7 L MCV 80.7 L D MCH 25.9 L MCHC 32.1 L RDW 15.0 H Plt Count 490 H D MPV 8.6 Neut % (Auto) 70.4 Lymph % (Auto) 18.3 L Grayson % (Auto) 7.9 Eos % (Auto) 1.9 Baso % (Auto) 1.5 Neut # (Auto) 6.9 Lymph # (Auto) 1.8 Grayson # (Auto) 0.8 Eos # (Auto) 0.2 Baso # (Auto) 0.1 PT 13.0 H INR 1.2 APTT 27 D-Dimer, Quantitative > 5250 H Sodium 137 Potassium 3.9 Chloride 101 Carbon Dioxide 23 Anion Gap 17 BUN 8 Creatinine 0.8 Est GFR ( Amer) > 60 Est GFR (Non-Af Amer) > 60 Random Glucose 154 H Calcium 9.0 Total Bilirubin 0.7 AST 38 H ALT 18 Alkaline Phosphatase 101 Total Creatine Kinase 58 CK-MB (Mass) 0.93 Troponin I < 0.0120 NT-Pro-B Natriuret Pep 144 Total Protein 8.1 Albumin 3.9 Globulin 4.2 H Albumin/Globulin Ratio 0.9 L Lipase 69 CA 125 Antigen Urine Color Urine Clarity Urine pH Ur Specific Liguori Urine Protein Urine Glucose (UA) Urine Ketones Urine Blood Urine Nitrate Urine Bilirubin Urine Urobilinogen Ur Leukocyte Esterase Urine WBC (Auto) Urine RBC (Auto) Ur Squamous Epith Cells Stool Occult Blood Blood Type Antibody Screen Crossmatch 06/05/18 06/05/18 06/05/18 00:00 01:25 05:26 WBC RBC Hgb 8.5 L Hct 26.4 L MCV MCH MCHC RDW Plt Count MPV Neut % (Auto) Lymph % (Auto) Grayson % (Auto) Eos % (Auto) Baso % (Auto) Neut # (Auto) Lymph # (Auto) Grayson # (Auto) Eos # (Auto) Baso # (Auto) PT INR APTT D-Dimer, Quantitative Sodium Potassium Chloride Carbon Dioxide Anion Gap BUN Creatinine Est GFR ( Amer) Est GFR (Non-Af Amer) Random Glucose Calcium Total Bilirubin AST ALT Alkaline Phosphatase Total Creatine Kinase CK-MB (Mass) Troponin I NT-Pro-B Natriuret Pep Total Protein Albumin Globulin Albumin/Globulin Ratio Lipase CA 125 Antigen Urine Color Yellow Urine Clarity Clear Urine pH 5.0 Ur Specific Liguori 1.048 H Urine Protein Negative Urine Glucose (UA) Normal Urine Ketones Negative Urine Blood Negative Urine Nitrate Negative Urine Bilirubin Negative Urine Urobilinogen Normal Ur Leukocyte Esterase Neg Urine WBC (Auto) < 1 Urine RBC (Auto) < 1 Ur Squamous Epith Cells 4 Stool Occult Blood Blood Type AB POSITIVE Antibody Screen Negative Crossmatch See Detail 06/05/18 06/05/18 06/05/18 07:05 10:10 11:35 WBC 7.8 RBC 3.17 L Hgb 8.5 L Hct 25.3 L MCV 79.7 L MCH 26.8 L MCHC 33.6 RDW 15.2 H Plt Count 364 D MPV 8.1 Neut % (Auto) 73.0 Lymph % (Auto) 14.7 L Grayson % (Auto) 9.1 Eos % (Auto) 2.0 Baso % (Auto) 1.2 Neut # (Auto) 5.7 Lymph # (Auto) 1.1 Grayson # (Auto) 0.7 Eos # (Auto) 0.2 Baso # (Auto) 0.1 PT INR APTT D-Dimer, Quantitative Sodium Potassium Chloride Carbon Dioxide Anion Gap BUN Creatinine Est GFR ( Amer) Est GFR (Non-Af Amer) Random Glucose Calcium Total Bilirubin AST ALT Alkaline Phosphatase Total Creatine Kinase CK-MB (Mass) Troponin I NT-Pro-B Natriuret Pep Total Protein Albumin Globulin Albumin/Globulin Ratio Lipase CA 125 Antigen 666 H Urine Color Urine Clarity Urine pH Ur Specific Liguori Urine Protein Urine Glucose (UA) Urine Ketones Urine Blood Urine Nitrate Urine Bilirubin Urine Urobilinogen Ur Leukocyte Esterase Urine WBC (Auto) Urine RBC (Auto) Ur Squamous Epith Cells Stool Occult Blood Negative Blood Type Antibody Screen Crossmatch Assessment & Plan - Assessment and Plan (Free Text) Assessment: 1. Mass in left hemipelvis and left mid abdomen, [id number], with pelvic ascites, omental caking likely representing ovarian malignancy with peritoneal carcinomatosis 2. Finding discussed with patient's daughter. All of her questions were answered. 3. Hx of chronic HTN Plan: 1. Follow up with outpatient BACK DIGGER OPERATOR Oncologist for further workup of ovarian malignancy. 2. Patient to be given reports of CT and ultrasound findings for further workup. 3. Continue BP medication as per medicine team. Thank you for this consultation. Will sign off. Case discussed with Dr. Michael Mcdermott, PGY1 <Earline Rodriguez - Last Filed: 06/05/18 17:28> Meds - Medications Medications: Current Medications Furosemide (Lasix) 20 mg IVP DAILY [facility] Last Admin: 06/05/18 17:13 Dose: 20 mg Sodium Chloride (Sodium Chloride 0.9%) 1,000 mls @ 50 mls/hr IV .Q20H [facility] Last Admin: 06/05/18 17:08 Dose: 50 mls/hr Losartan Potassium (Cozaar) 25 mg PO DAILY [facility] Last Admin: 06/05/18 10:28 Dose: 25 mg Metoprolol Succinate (Toprol Xl) 25 mg PO DAILY [facility] Last Admin: 06/05/18 10:29 Dose: 25 mg Morphine Sulfate (Morphine) 1 mg IV Q6 PRN PRN Reason: Pain, severe (8-10) Ondansetron HCl (Zofran Inj) 4 mg IVP Q6 PRN PRN Reason: Nausea/Vomiting Pantoprazole Sodium (Protonix Inj) 40 mg IVP DAILY [facility] Last Admin: 06/05/18 10:28 Dose: 40 mg Results - Vital Signs Recent Vital Signs: Last Vital Signs Temp 97.9 F 06/05/18 05:26 Pulse 70 06/05/18 17:09 Resp 23 06/05/18 17:09 BP 138/65 06/05/18 17:13 Pulse Ox 100 06/05/18 17:09 - Labs Result Diagrams: 06/05/18 16:20 06/04/18 22:07 Labs: Laboratory Results - last 24 hr 06/04/18 06/04/18 06/04/18 22:07 22:07 22:07 WBC 9.8 RBC 3.94 Hgb 10.2 L D Hct 31.7 L MCV 80.7 L D MCH 25.9 L MCHC 32.1 L RDW 15.0 H Plt Count 490 H D MPV 8.6 Neut % (Auto) 70.4 Lymph % (Auto) 18.3 L Grayson % (Auto) 7.9 Eos % (Auto) 1.9 Baso % (Auto) 1.5 Neut # (Auto) 6.9 Lymph # (Auto) 1.8 Grayson # (Auto) 0.8 Eos # (Auto) 0.2 Baso # (Auto) 0.1 PT 13.0 H INR 1.2 APTT 27 D-Dimer, Quantitative > 5250 H Sodium 137 Potassium 3.9 Chloride 101 Carbon Dioxide 23 Anion Gap 17 BUN 8 Creatinine 0.8 Est GFR ( Amer) > 60 Est GFR (Non-Af Amer) > 60 Random Glucose 154 H Calcium 9.0 Total Bilirubin 0.7 AST 38 H ALT 18 Alkaline Phosphatase 101 Total Creatine Kinase 58 CK-MB (Mass) 0.93 Troponin I < 0.0120 NT-Pro-B Natriuret Pep 144 Total Protein 8.1 Albumin 3.9 Globulin 4.2 H Albumin/Globulin Ratio 0.9 L Lipase 69 CA 125 Antigen Urine Color Urine Clarity Urine pH Ur Specific Liguori Urine Protein Urine Glucose (UA) Urine Ketones Urine Blood Urine Nitrate Urine Bilirubin Urine Urobilinogen Ur Leukocyte Esterase Urine WBC (Auto) Urine RBC (Auto) Ur Squamous Epith Cells Stool Occult Blood Blood Type Antibody Screen Crossmatch 06/05/18 06/05/18 06/05/18 00:00 01:25 05:26 WBC RBC Hgb 8.5 L Hct 26.4 L MCV MCH MCHC RDW Plt Count MPV Neut % (Auto) Lymph % (Auto) Grayson % (Auto) Eos % (Auto) Baso % (Auto) Neut # (Auto) Lymph # (Auto) Grayson # (Auto) Eos # (Auto) Baso # (Auto) PT INR APTT D-Dimer, Quantitative Sodium Potassium Chloride Carbon Dioxide Anion Gap BUN Creatinine Est GFR ( Amer) Est GFR (Non-Af Amer) Random Glucose Calcium Total Bilirubin AST ALT Alkaline Phosphatase Total Creatine Kinase CK-MB (Mass) Troponin I NT-Pro-B Natriuret Pep Total Protein Albumin Globulin Albumin/Globulin Ratio Lipase CA 125 Antigen Urine Color Yellow Urine Clarity Clear Urine pH 5.0 Ur Specific Ligu[place] 1.048 H Urine Protein Negative Urine Glucose (UA) Normal Urine Ketones Negative Urine Blood Negative Urine Nitrate Negative Urine Bilirubin Negative Urine Urobilinogen Normal Ur Leukocyte Esterase Neg Urine WBC (Auto) < 1 Urine RBC (Auto) < 1 Ur Squamous Epith Cells 4 Stool Occult Blood Blood Type AB POSITIVE Antibody Screen Negative Crossmatch See Detail 06/05/18 06/05/18 06/05/18 07:05 10:10 11:35 WBC 7.8 RBC 3.17 L Hgb 8.5 L Hct 25.3 L MCV 79.7 L MCH 26.8 L MCHC 33.6 RDW 15.2 H Plt Count 364 D MPV 8.1 Neut % (Auto) 73.0 Lymph % (Auto) 14.7 L Grayson % (Auto) 9.1 Eos % (Auto) 2.0 Baso % (Auto) 1.2 Neut # (Auto) 5.7 Lymph # (Auto) 1.1 Grayson # (Auto) 0.7 Eos # (Auto) 0.2 Baso # (Auto) 0.1 PT INR APTT D-Dimer, Quantitative Sodium Potassium Chloride Carbon Dioxide Anion Gap BUN Creatinine Est GFR ( Amer) Est GFR (Non-Af Amer) Random Glucose Calcium Total Bilirubin AST ALT Alkaline Phosphatase Total Creatine Kinase CK-MB (Mass) Troponin I NT-Pro-B Natriuret Pep Total Protein Albumin Globulin Albumin/Globulin Ratio Lipase CA 125 Antigen 666 H Urine Color Urine Clarity Urine pH Ur Specific Liguori Urine Protein Urine Glucose (UA) Urine Ketones Urine Blood Urine Nitrate Urine Bilirubin Urine Urobilinogen Ur Leukocyte Esterase Urine WBC (Auto) Urine RBC (Auto) Ur Squamous Epith Cells Stool Occult Blood Negative Blood Type Antibody Screen Crossmatch 06/05/18 16:20 WBC RBC Hgb 9.6 L Hct 29.2 L MCV MCH MCHC RDW Plt Count MPV Neut % (Auto) Lymph % (Auto) Grayson % (Auto) Eos % (Auto) Baso % (Auto) Neut # (Auto) Lymph # (Auto) Grayson # (Auto) Eos # (Auto) Baso # (Auto) PT INR APTT D-Dimer, Quantitative Sodium Potassium Chloride Carbon Dioxide Anion Gap BUN Creatinine Est GFR ( Amer) Est GFR (Non-Af Amer) Random Glucose Calcium Total Bilirubin AST ALT Alkaline Phosphatase Total Creatine Kinase CK-MB (Mass) Troponin I NT-Pro-B Natriuret Pep Total Protein Albumin Globulin Albumin/Globulin Ratio Lipase CA 125 Antigen Urine Color Urine Clarity Urine pH Ur Specific Liguori Urine Protein Urine Glucose (UA) Urine Ketones Urine Blood Urine Nitrate Urine Bilirubin Urine Urobilinogen Ur Leukocyte Esterase Urine WBC (Auto) Urine RBC (Auto) Ur Squamous Epith Cells Stool Occult Blood Blood Type Antibody Screen Crossmatch Assessment & Plan - Assessment and Plan (Free Text) Assessment: 4. Ca125 [id number]
[2018-06-05] MEDS ORDERED: Sodium Chloride 0.9% 1,000 ML IV SCH (16:15)
[2018-06-05 16:24] LABS: HEMOGLOBIN 9.6 g/dL (11.0-16.0)
--- NOTE | 2018-06-05 17:02 | US ---
Indication: Abdominal distension/?pelvic mass Technique: A real-time transabdominal pelvic ultrasound was performed. In addition, a transvaginal pelvic ultrasound was necessary to better depict pelvic anatomy. Comparison: CT abdomen and pelvis with IV contrast performed 06/04/18 Findings: The uterus measures approximately 8.3 x 2.7 x 4.6 cm. Anteverted. Endometrial stripe appears unremarkable, measuring approximately 0.5 cm. The right ovary measures 4.1 x 3.2 x 3.5 cm. Blood flow is demonstrated to the right ovary. The left ovary is not visualized. Left adnexal mass measures approximately 11.0 x 6.1 x 8.4 cm Moderate pelvic free fluid identified. Impression: Large heterogeneous left adnexal mass measuring approximately 11.0 x 6.1 x 8.4 cm worrisome for ovarian malignancy. Moderate pelvic free fluid.
[2018-06-05 18:17] VITALS: RESP 20
[2018-06-05] MEDS ORDERED: Pneumococcal 23-Valent Vaccine IM ONE (19:09)
[2018-06-05] MEDS ORDERED: Influenza Vaccine 60 MCG/0.5 ML SYR (3 yr & up) IM ONE (19:12)
--- NOTE | 2018-06-05 23:06 | CARD ---
APPROVED REPORT Date of service: 06/04/2018 EKG Measurement Heart [id number] <Conclusion> Sinus tachycardia Cannot rule out Anterior infarct, age undetermined Abnormal ECG
[2018-06-06 00:11] LABS: HEMOGLOBIN 8.7 g/dL (11.0-16.0)
[2018-06-06 04:55] VITALS: BP 104/61; TEMP 97.8; O2SAT 96
[2018-06-06 07:14] LABS: BASO # 0.1 K/uL (0.0-0.2); BASO % 0.6 % (0.0-2.0); EOS # 0.3 K/uL (0.0-0.7); EOS % 2.8 % (0.0-4.0); HEMOGLOBIN 8.8 g/dL (11.0-16.0); LYMPH # 1.3 K/uL (1.0-4.3); LYMPH % 12.8 % (20.0-40.0); MEAN CELL VOLUME 80.6 fL (81.0-99.0); MEAN CORPUSCULAR HEMOGLOBIN 26.9 pg (27.0-31.0); MEAN CORPUSCULAR HGB CONC 33.4 g/dL (33.0-37.0); MEAN PLATELET VOLUME 9.4 fL (7.2-11.7); MONO % 9.9 % (0.0-10.0); NEUT # 7.4 K/uL (1.8-7.0); NEUT % 73.9 % (50.0-75.0); RBC 3.25 Mil/uL (3.80-5.20); RED CELL DISTRIBUTION WIDTH 15.2 % (11.5-14.5)
--- NOTE | 2018-06-06 07:21 | CP.PCM.PN ---
Subjective - Date & Time of Evaluation Date of Evaluation: 06/06/18 Time of Evaluation: 07:21 - Subjective Subjective: Gen Sx: Dr Milner Pt S&E. NAEO. Resting comfortably. Minimal pain. HgB stable ~8.5. Denies N/V, F/C. Findings consistent with ovarian malignancy. Being followed by gynecology No plans for intervention from general surgery. Please reconsult PRN will d/w Dr Afl Donahue, PGY4 Objective - Vital Signs/Intake and Output Vital Signs (last 24 hours): Temp Pulse Resp BP Pulse Ox 97.8 F 85 20 104/61 96 06/06/18 04:00 06/06/18 04:00 06/06/18 04:00 06/06/18 04:00 06/06/18 04:00 - Medications Medications: Current Medications Furosemide (Lasix) 20 mg IVP DAILY [facility] Last Admin: 06/05/18 17:13 Dose: 20 mg Sodium Chloride (Sodium Chloride 0.9%) 1,000 mls @ 50 mls/hr IV .Q20H [facility] Last Admin: 06/05/18 17:08 Dose: 50 mls/hr Losartan Potassium (Cozaar) 25 mg PO DAILY [facility] Last Admin: 06/05/18 10:28 Dose: 25 mg Metoprolol Succinate (Toprol Xl) 25 mg PO DAILY [facility] Last Admin: 06/05/18 10:29 Dose: 25 mg Morphine Sulfate (Morphine) 1 mg IV Q6 PRN PRN Reason: Pain, severe (8-10) Last Admin: 06/05/18 19:46 Dose: 1 mg Ondansetron HCl (Zofran Inj) 4 mg IVP Q6 PRN PRN Reason: Nausea/Vomiting Last Admin: 06/05/18 22:45 Dose: 4 mg Pantoprazole Sodium (Protonix Inj) 40 mg IVP DAILY [facility] Last Admin: 06/05/18 10:28 Dose: 40 mg - Labs Labs: 06/05/18 23:59 06/04/18 22:07 PT 13.0 SECONDS (9.7-12.2) H 06/04/18 22:07 INR 1.2 06/04/18 22:07 APTT 27 SECONDS (21-34) 06/04/18 22:07 - Constitutional Appears: Non-toxic, No Acute Distress - Respiratory Exam Respiratory Exam: absent: Respiratory Distress - Cardiovascular Exam Cardiovascular Exam: REGULAR RHYTHM. absent: Tachycardia - GI/Abdominal Exam GI & Abdominal Exam: Distended, Soft. absent: Guarding, Tenderness Assessment and Plan - Assessment and Plan (Free Text) Plan: No plans for intervention from general surgery. Please reconsult PRN will d/w Dr Alf Donahue, PGY4
[2018-06-06 07:29] LABS: ALB/GLOB RATIO 0.9 (1.0-2.1); ALBUMIN 3.2 g/dL (3.5-5.0); ALT/SGPT 19 U/L (9-52); AST/SGOT 33 U/L (14-36); BLOOD UREA NITROGEN 8 mg/dL (7-17); CALCIUM 8.5 mg/dl (8.6-10.4); GFR NON-AFRICAN AMERICAN > 60
--- NOTE | 2018-06-06 09:06 | CP.PCM.DIS ---
<Susan Lerma - Last Filed: 06/06/18 09:25> Provider - Provider Date of Admission: 06/05/18 00:07 Attending physician: Alexey Gibson MD Primary care physician: Glenda Mercado MD Consults: Dr. Rodriguez-electrical plumbing supervisor Dr. Milner-surgery Dr. Valentin-IR Time Spent in preparation of Discharge (in minutes): 29 Diagnosis - Discharge Diagnosis (1) Ovarian neoplasm Status: Acute Comment: CA-125: 666. Imaging consistent with diagnosis Hospital Course - Lab Results Lab Results: Most Recent Lab Values WBC 10.0 K/uL (4.8-10.8) 06/06/18 07:07 RBC 3.25 Mil/uL (3.80-5.20) L 06/06/18 07:07 Hgb 8.8 g/dL (11.0-16.0) L 06/06/18 07:07 Hct 26.2 % (34.0-47.0) L 06/06/18 07:07 MCV 80.6 fL (81.0-99.0) L 06/06/18 07:07 MCH 26.9 pg (27.0-31.0) L 06/06/18 07:07 MCHC 33.4 g/dL (33.0-37.0) 06/06/18 07:07 RDW 15.2 % (11.5-14.5) H 06/06/18 07:07 Plt Count 364 K/uL (130-400) 06/06/18 07:07 MPV 9.4 fL (7.2-11.7) 06/06/18 07:07 Neut % (Auto) 73.9 % (50.0-75.0) 06/06/18 07:07 Lymph % (Auto) 12.8 % (20.0-40.0) L 06/06/18 07:07 [place] % (Auto) 9.9 % (0.0-10.0) 06/06/18 07:07 Eos % (Auto) 2.8 % (0.0-4.0) 06/06/18 07:07 Baso % (Auto) 0.6 % (0.0-2.0) 06/06/18 07:07 Neut # (Auto) 7.4 K/uL (1.8-7.0) H 06/06/18 07:07 Lymph # (Auto) 1.3 K/uL (1.0-4.3) 06/06/18 07:07 [place] # (Auto) 1.0 K/uL (0.0-0.8) H 06/06/18 07:07 Eos # (Auto) 0.3 K/uL (0.0-0.7) 06/06/18 07:07 Baso # (Auto) 0.1 K/uL (0.0-0.2) 06/06/18 07:07 PT 13.0 SECONDS (9.7-12.2) H 06/04/18 22:07 INR 1.2 06/04/18 22:07 APTT 27 SECONDS (21-34) 06/04/18 22:07 D-Dimer, Quantitative > 5250 ng/mlDDU (0-243) H 06/04/18 22:07 Sodium 135 mmol/L (132-148) 06/06/18 07:07 Potassium 4.1 mmol/L (3.6-5.2) 06/06/18 07:07 Chloride 101 mmol/L (98-107) 06/06/18 07:07 Carbon Dioxide 25 mmol/L (22-30) 06/06/18 07:07 Anion Gap 13 (10-20) 06/06/18 07:07 BUN 8 mg/dL (7-17) 06/06/18 07:07 Creatinine 0.8 mg/dL (0.7-1.2) 06/06/18 07:07 Est GFR ( Amer) > 60 06/06/18 07:07 Est GFR (Non-Af Amer) > 60 06/06/18 07:07 POC Glucose (mg/dL) 101 mg/dL (65-110) 06/06/18 06:33 Random Glucose 103 mg/dL (65-105) 06/06/18 07:07 Calcium 8.5 mg/dl (8.6-10.4) L 06/06/18 07:07 Total Bilirubin 0.7 mg/dL (0.2-1.3) 06/06/18 07:07 AST 33 U/L (14-36) 06/06/18 07:07 ALT 19 U/L (9-52) 06/06/18 07:07 Alkaline Phosphatase 88 U/L (38-126) 06/06/18 07:07 Total Creatine Kinase 58 U/L (30-135) 06/04/18 22:07 CK-MB (Mass) 0.93 ng/mL (0.0-3.38) 06/04/18 22:07 Troponin I < 0.0120 ng/mL (0.00-0.120) 06/04/18 22:07 NT-Pro-B Natriuret Pep 144 pg/mL (0-900) 06/04/18 22:07 Total Protein 6.8 g/dL (6.3-8.3) 06/06/18 07:07 Albumin 3.2 g/dL (3.5-5.0) L 06/06/18 07:07 Globulin 3.5 gm/dL (2.2-3.9) 06/06/18 07:07 Albumin/Globulin Ratio 0.9 (1.0-2.1) L 06/06/18 07:07 Lipase 69 U/L (23-300) 06/04/18 22:07 CA 125 Antigen 666 U/mL (0-35) H 06/05/18 11:35 Urine Color Yellow (YELLOW) 06/05/18 01:25 Urine Clarity Clear (Clear) 06/05/18 01:25 Urine pH 5.0 (5.0-8.0) 06/05/18 01:25 Ur Specific [place] 1.048 (1.003-1.030) H 06/05/18 01:25 Urine Protein Negative mg/dL (NEGATIVE) 06/05/18 01:25 Urine Glucose (UA) Normal mg/dL (Normal) 06/05/18 01:25 Urine Ketones Negative mg/dL (NEGATIVE) 06/05/18 01:25 Urine Blood Negative (NEGATIVE) 06/05/18 01:25 Urine Nitrate Negative (NEGATIVE) 06/05/18 01:25 Urine Bilirubin Negative (NEGATIVE) 06/05/18 01:25 Urine Urobilinogen Normal mg/dL (0.2-1.0) 06/05/18 01:25 Ur Leukocyte Esterase Neg Avani/uL (Negative) 06/05/18 01:25 Urine WBC (Auto) < 1 /hpf (0-5) 06/05/18 01:25 Urine RBC (Auto) < 1 /hpf (0-3) 06/05/18 01:25 Ur Squamous Epith Cells 4 /hpf (0-5) 06/05/18 01:25 Stool Occult Blood Negative (NEGATIVE) 06/05/18 07:05 Blood Type AB POSITIVE 06/05/18 00:00 Antibody Screen Negative 06/05/18 00:00 Crossmatch See Detail 06/05/18 00:00 - Hospital Course Hospital Course: Patient was evaluated and treated at [facility] from 06/04/18-06/06/18. Pt presented w/ increasing abdominal distention over 10 days. Blood work drawn, and pt found to have decreasing hgb concerning for an acute bleed. CT abdomen/pelvis revealed findings consistent with an ovarian neoplasm and peritoneal carcinomatosis. Surgery, Dr. Milner consulted; IR, Dr. Valentin consulted; Business Strategy Manager, Dr. Rodriguez consulted. Trans vaginal US findings consistent w/ left adnexal ovarian malignancy. Pt treated symptomatically overnight with lasix, miralax, simethicone and morphine. HTN managed with losartan and metoprolol succinate. Pt remains stable for discharge. Instructions for further care provided to patient and daughter. HPI on admission: "Pt is a 67 F with PMH HTN who presents with shortness of breath x1 day. She also reports increased abdominal distention for the past week. She tried taking antacid at home with no relief. She reports coming back from a 5 month stay in [facility] in February. She also reports increased swelling in the R leg. She reports some nausea, but denies vomiting. She denies chest pain, dizziness, headache, diarrhea, dysuria. " Refer to EMR for full record Discharge Exam - Head Exam Head Exam: ATRAUMATIC, NORMAL INSPECTION, NORMOCEPHALIC - Eye Exam Eye Exam: EOMI, Normal appearance - ENT Exam ENT Exam: Mucous Membranes Moist, Normal Exam - Neck Exam Neck exam: Normal Inspection - Respiratory Exam Respiratory Exam: Clear to PA & Lateral, NORMAL BREATHING PATTERN, UNREMARKABLE - Cardiovascular Exam Cardiovascular Exam: REGULAR RHYTHM, +S1, +S2. absent: Tachycardia, Systolic Murmur - GI/Abdominal Exam GI & Abdominal Exam: Distended, Normal Bowel Sounds, Soft. absent: Tenderness - Extremities Exam Extremities exam: pedal edema (2+ B/L) - Neurological Exam Neurological exam: Alert, Oriented x3 - Psychiatric Exam Psychiatric exam: Normal Affect, Normal Mood - Skin Skin Exam: Dry, Intact, Normal Color, Warm Discharge Plan - Discharge Medications Prescriptions: Furosemide [Lasix] 20 mg PO DAILY #30 tablet Losartan [Cozaar] 25 mg PO DAILY #30 tab Metoprolol Succinate 25 mg PO DAILY #30 tab.er.24h Pantoprazole [Protonix EC Tab] 40 mg PO DAILY #60 ect - Follow Up Plan Condition: GUARDED Disposition: HOME/ ROUTINE Instructions: Heart Healthy Diet, Fluid in the Belly (Ascites) (DC), Furosemide, Losartan, Metoprolol, Pantoprazole Additional Instructions: Patient is stable for discharge. Patient must first start application for [facility], and make an appointment [facility] [address] [place], [address] Patient is to follow up with the Department of Obstetrics and Gynecology and [facility] [address] [address] If the [facility] process is not started first, a $50.00 fee will be imposed. Patient is instructed to bring pertinent medical records to the appointment to expedite the process; theses include relevant labs and imaging of CT abdomen/pelvis, and abdomen/pelvis transvaginal ultrasound. Patient will also be given 3 prescriptions to manage hypertension upon discharge, and 1 to continue home protonix Lasix 20mg; take 1 at 8am each day Losartan 25mg; take 1 at 2pm each day Metorolol Succinate ER 25mg; take 1 at 8pm each day. Protonix 20mg; take one each day Patient is instructed to go to the nearest emergency department with any worsening or concern of symptoms. Referrals: Glenda Mercado MD [Primary Care Provider] - <Juno Salas - Last Filed: 06/06/18 19:33> Provider - Provider Date of Admission: 06/05/18 00:07 Attending physician: Alexey Gibson MD Primary care physician: Glenda Mercado MD Time Spent in preparation of Discharge (in minutes): 40 Hospital Course - Lab Results Lab Results: Micro Results 06/05/18 01:25 Urine Urine Culture - Final 10-50,000 CFU/ML. MULTIPLE SPECIES. PROBABLE CONTAMINATION. Most Recent Lab Values WBC 10.0 K/uL (4.8-10.8) 06/06/18 07:07 RBC 3.25 Mil/uL (3.80-5.20) L 06/06/18 07:07 Hgb 8.8 g/dL (11.0-16.0) L 06/06/18 07:07 Hct 26.2 % (34.0-47.0) L 06/06/18 07:07 MCV 80.6 fL (81.0-99.0) L 06/06/18 07:07 MCH 26.9 pg (27.0-31.0) L 06/06/18 07:07 MCHC 33.4 g/dL (33.0-37.0) 06/06/18 07:07 RDW 15.2 % (11.5-14.5) H 06/06/18 07:07 Plt Count 364 K/uL (130-400) 06/06/18 07:07 MPV 9.4 fL (7.2-11.7) 06/06/18 07:07 Neut % (Auto) 73.9 % (50.0-75.0) 06/06/18 07:07 Lymph % (Auto) 12.8 % (20.0-40.0) L 06/06/18 07:07 Coos % (Auto) 9.9 % (0.0-10.0) 06/06/18 07:07 Eos % (Auto) 2.8 % (0.0-4.0) 06/06/18 07:07 Baso % (Auto) 0.6 % (0.0-2.0) 06/06/18 07:07 Neut # (Auto) 7.4 K/uL (1.8-7.0) H 06/06/18 07:07 Lymph # (Auto) 1.3 K/uL (1.0-4.3) 06/06/18 07:07 [place] # (Auto) 1.0 K/uL (0.0-0.8) H 06/06/18 07:07 Eos # (Auto) 0.3 K/uL (0.0-0.7) 06/06/18 07:07 Baso # (Auto) 0.1 K/uL (0.0-0.2) 06/06/18 07:07 PT 13.0 SECONDS (9.7-12.2) H 06/04/18 22:07 INR 1.2 06/04/18 22:07 APTT 27 SECONDS (21-34) 06/04/18 22:07 D-Dimer, Quantitative > 5250 ng/mlDDU (0-243) H 06/04/18 22:07 Sodium 135 mmol/L (132-148) 06/06/18 07:07 Potassium 4.1 mmol/L (3.6-5.2) 06/06/18 07:07 Chloride 101 mmol/L (98-107) 06/06/18 07:07 Carbon Dioxide 25 mmol/L (22-30) 06/06/18 07:07 Anion Gap 13 (10-20) 06/06/18 07:07 BUN 8 mg/dL (7-17) 06/06/18 07:07 Creatinine 0.8 mg/dL (0.7-1.2) 06/06/18 07:07 Est GFR ( Amer) > 60 06/06/18 07:07 Est GFR (Non-Af Amer) > 60 06/06/18 07:07 POC Glucose (mg/dL) 101 mg/dL (65-110) 06/06/18 06:33 Random Glucose 103 mg/dL (65-105) 06/06/18 07:07 Calcium 8.5 mg/dl (8.6-10.4) L 06/06/18 07:07 Total Bilirubin 0.7 mg/dL (0.2-1.3) 06/06/18 07:07 AST 33 U/L (14-36) 06/06/18 07:07 ALT 19 U/L (9-52) 06/06/18 07:07 Alkaline Phosphatase 88 U/L (38-126) 06/06/18 07:07 Total Creatine Kinase 58 U/L (30-135) 06/04/18 22:07 CK-MB (Mass) 0.93 ng/mL (0.0-3.38) 06/04/18 22:07 Troponin I < 0.0120 ng/mL (0.00-0.120) 06/04/18 22:07 NT-Pro-B Natriuret Pep 144 pg/mL (0-900) 06/04/18 22:07 Total Protein 6.8 g/dL (6.3-8.3) 06/06/18 07:07 Albumin 3.2 g/dL (3.5-5.0) L 06/06/18 07:07 Globulin 3.5 gm/dL (2.2-3.9) 06/06/18 07:07 Albumin/Globulin Ratio 0.9 (1.0-2.1) L 06/06/18 07:07 Lipase 69 U/L (23-300) 06/04/18 22:07 CA 125 Antigen 666 U/mL (0-35) H 06/05/18 11:35 Urine Color Yellow (YELLOW) 06/05/18 01:25 Urine Clarity Clear (Clear) 06/05/18 01:25 Urine pH 5.0 (5.0-8.0) 06/05/18 01:25 Ur Specific [place] 1.048 (1.003-1.030) H 06/05/18 01:25 Urine Protein Negative mg/dL (NEGATIVE) 06/05/18 01:25 Urine Glucose (UA) Normal mg/dL (Normal) 06/05/18 01:25 Urine Ketones Negative mg/dL (NEGATIVE) 06/05/18 01:25 Urine Blood Negative (NEGATIVE) 06/05/18 01:25 Urine Nitrate Negative (NEGATIVE) 06/05/18 01:25 Urine Bilirubin Negative (NEGATIVE) 06/05/18 01:25 Urine Urobilinogen Normal mg/dL (0.2-1.0) 06/05/18 01:25 Ur Leukocyte Esterase Neg Avani/uL (Negative) 06/05/18 01:25 Urine WBC (Auto) < 1 /hpf (0-5) 06/05/18 01:25 Urine RBC (Auto) < 1 /hpf (0-3) 06/05/18 01:25 Ur Squamous Epith Cells 4 /hpf (0-5) 06/05/18 01:25 Stool Occult Blood Negative (NEGATIVE) 06/05/18 07:05 Blood Type AB POSITIVE 06/05/18 00:00 Antibody Screen Negative 06/05/18 00:00 Crossmatch See Detail 06/05/18 00:00 Attending/Attestation - Attestation I have personally seen and examined this patient.: Yes I have fully participated in the care of the patient.: Yes I have reviewed all pertinent clinical information, including history, physical exam and plan: Yes Notes (Text): 06/06/18 19:27 Patient was seen and examined at 8:15 AM 06/06/18 She is moving her bowels She had some pasta last night without any issues Bilateral Knee pain that is chronic in nature (had right replaced in [place] roughly 5 months ago) NO SOB NO CP Abdominal pain is much improved Last bowel movement 06/05/18 NO other complaints upon FULL ROS Exam: HEENT, Cardio, Resp, Ext, CN exams were unremarkable Abdomen: BSx4, SOFT, Mild distention, NT, NO guarding/rebound tenderness Went over discharge instructions with patient Went over discharge instructions with patient's Daughter Peyton Salas in detail concerning follow up wi Department of [employer]CH[employer] and Department of [facility] at [facility] as well as patient's medications. She expressed understanding concerning the follow up instructions and seriousness of the possible/likely ovarian mass and the need for further evaluation by [facility] at [facility]. Juno Salas D.O.
[2018-06-06] MEDS: Metoprolol Succinate 25 mg XL Tab PO SCH (11:07)
[2018-06-06 12:29] VITALS: PULSE 78
== END 2018-06-06 11:56 | disposition home or self-care (01) | DRG 530 ==
LOC: SUPCPDRO 21:33 → C.ER 21:33 → C.9E 06-05 00:07 → C.6T 06-05 16:55
PROVIDERS: ADMIT Family Medicine; ATTEND Family Medicine
DX: C56.9 Malignant neoplasm of unspecified ovary (principal); K66.1 Hemoperitoneum; C78.6 Secondary malignant neoplasm of retroperitoneum and peritoneum; I10 Essential (primary) hypertension; Z79.899 Other long term (current) drug therapy; Z96.651 Presence of right artificial knee joint; K21.9 Gastro-esophageal reflux disease without esophagitis